=== PATIENT | male | born 1980 | race Caucasian/White ===

== ENCOUNTER 2017-03-30 14:18 | Emergency (ER) | payer OTHER ==
[~2017-03-30] VITALS: Ht 180.3 cm; Wt 83.9 kg
--- NOTE | ~2017-03-30 | CR141 ---
[facility] A Service of [facility] RADIOLOGY TEXT RESULTS PATIENT: TRISTIN HALEY LOCATION: DI : 76 UNIT #: [id number] AGE: [address]: French Paul MD SEX: M ORDER DR: [id number] [facility] [address] [place], [place] [address] [id number] MR#: [id number] Acc #: [id number] NAME: TRISTIN HALEY : 1980 SEX: M STUDY DATE/TIME: 03/30/2017 14:52 UNIT: DI ROOM: STUDY DESCRIPTION: CR Hand Min 3 Views Lt Attending Physician: French Paul M.D. Ordering Physician: French Paul M.D. Primary Care Physician: No Primary Care Physician MEDICAL IMAGING REPORT This report is preliminary unless electronic signature is present EXAMINATION Three views left hand. DATE 03/30/2017 HISTORY 36-year-old male with left hand pain, fourth digit pain and deformity today after piece of machinery fell on hand. FINDINGS The left fourth finger is dislocated at the PIP joint. The middle and distal phalanx are displaced in a ulnar (medial) and posterior direction. Tiny calcific densities are seen at the ulnar margin of the PIP joint which may represent tiny cortical avulsions. Remainder of the left hand is unremarkable. IMPRESSION Dislocation of the left fourth finger at the PIP joint in a ulnar (medial) and posterior direction with tiny cortical avulsion type fragment seen at the ulnar margin of the joint. Dictated by... Ana Tripp M.D. THIS IS AN ELECTRONICALLY VERIFIED REPORT Ana Tripp M.D. at 04/05/2017 8:37 AM CAYDEN/jamilah TD: 03/30/2017 21:15 JOB #: [id number] [facility] A Service of [facility] RADIOLOGY TEXT RESULTS PATIENT: TRISTIN HALEY LOCATION: DI : 76 UNIT #: [id number] AGE: [address]: French Paul MD SEX: M ORDER DR: MEDICAL IMAGING REPORT Page 1 of 1 COPY
[~2017-03-30 14:18] MED LIST: ALBUTEROL17 GM INH; AMBIEN PO; AMOXICILLIN PO; BACTRIM DS TABL1 TAB PO; DICLOFENAC PO; DOXYCYCLINE HY100 M1 PO; DOXYCYCLINE PO; IBUPROFEN PO; LISINOPRIL PO; LORTAB 10/500 T1 TAB PO; LORTAB 7.5-5001 TAB PO; NO MEDICATIONS; OMNICEF PO; PEN-VEE K PO; PREDNISONE PO; ROBAXIN PO; ROBITUSSIN COU118 ML PO; SUDAFED30 M1 PO; TEMAZEPAM PO; TYLENOL #3 PO; ULTRAM PO; VICODIN PO; ZITHROMAX PO; ZOFRANODT PO
== END 2017-03-30 15:25 | disposition home or self-care (01) ==
LOC: CED 14:18
DX: S63.255A Unspecified dislocation of left ring finger, initial encounter (principal); F17.200 Nicotine dependence, unspecified, uncomplicated; Z79.899 Other long term (current) drug therapy; W22.8XXA Striking against or struck by other objects, initial encounter; Y92.69 Other specified industrial and construction area as the place of occurrence of the external cause
CPT/HCPCS: 26770; 73130; 96372; 99283; J1170